=== PATIENT | male | born 1960 | race Caucasian/White ===

== ENCOUNTER 2024-09-18 09:04 | Outpatient (CLI) | payer MEDICARE, SELFPAY ==
--- NOTE | ~2024-09-18 | XR_ITS ---
Bilateral Hands Technique: Bilateral PA, oblique, and lateral views, and ball-catcher's view were obtained. Clinical History: Bilateral hand pain Findings: No acute fracture or dislocation is seen. Osseous alignment is anatomic. There is moderate degenerative change of the right first CMC joint there is minimal degenerative change of the interpha langeal joint of the right thumb. There is moderate to advanced degenerative change of the first CMC joint of the left hand. There is mild degenerative change of the left second DIP joint. Soft tissues are unremarkable. 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 Reviewed, dictated and finalized at location M. 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
[2024-09-18 09:29] LABS: Basophils Absolute Auto 0.03 K/mm3 (0.00-0.10); Basophils Percent Auto 0.5 % (0.0-1.0); Eosinophils Absolute Auto 0.24 K/mm3 (0.02-0.50); Hematocrit 41.6 % (40.0-54.0); Immature Granulocyte Absolute 0.04 K/mm3 (0.00-0.00); Immature Granulocyte Percent A 0.7 % (0.0-0.0); Lymphocytes Absolute Auto 0.92 K/mm3 (1.10-4.50); Lymphocytes Percent Auto 15.4 % (18.0-42.0); Mean Corpuscular HGB Conc 36.1 g/dL (32-36); Mean Corpuscular Volume 99.8 fL (78.0-102.0); Mean Platelet Volume 9.3 fl (8.7-11.0); Monocytes Absolute Auto 0.42 K/mm3 (0.10-0.90); Neutrophils Absolute Auto 4.33 K/mm3 (1.70-7.20); Neutrophils Percent Auto 72.4 % (50.0-70.0); Platelet Count Result 202 K/mm3 (150-420); Red Blood Count 4.17 M/mm3 (4.70-6.10)
[2024-09-18 09:42] LABS: Hemoglobin A1C 4.7 % (<5.7)
[2024-09-18 10:39] LABS: Alanine Aminotransferase 25 U/L (16-63); Albumin Level 3.7 g/dL (3.4-5.0); Alkaline Phosphatase 96 U/L (46-116); Anion Gap 7 mmol/L (4-12); Aspartate Amino Transferase 15 U/L (15-37); Bilirubin,Total 0.7 mg/dL (0.00-1.00); Blood Urea Nitrogen 17 mg/dL (7-18); Calcium 9.1 mg/dL (8.5-10.1); Carbon Dioxide 29 mmol/L (21-32); Chloride 106 mmol/L (98-108); Cholesterol 192 mg/dL (0-200); Estimated Glomerular Filt Rate > 60; Glucose 91 mg/dL (70-99); HDL Direct 95 mg/dL (40-60); LDL Cholesterol Calculated 89 mg/dL (<130); Osmolality Calculated 295 mOsm/kg (285-295); Potassium 5.1 mmol/L (3.5-5.1); Sodium 142 mmol/L (136-145); Total Protein 6.6 g/dL (6.4-8.2); Triglycerides 39 mg/dL (0-150)
[2024-09-18 10:40] LABS: CRP < 0.5 mg/dL (0.0-0.9); Thyroid Stimulating Hormone Reflex 0.87 u/IU/mL (0.36-3.74)
[2024-09-18 15:06] LABS: Rheumatoid Factor Screen Negative (Negative)
[2024-09-20 08:19] LABS: ANA Cascade Screen NEGATIVE (NEGATIVE)
== END 2024-09-18 09:05 | disposition home or self-care (01) ==
LOC: CHSLAB 09:08
PROVIDERS: PCP Family Medicine; Visit Provider Family Medicine
DX: I10 Essential (primary) hypertension (principal); M79.642 Pain in left hand; E11.9 Type 2 diabetes mellitus without complications; E03.9 Hypothyroidism, unspecified; M79.641 Pain in right hand
CPT/HCPCS: 36415; 73130; 80053; 80061; 83036; 83516; 84443; 85025; 86038; 86140; 86225; 86235; 86430